=== PATIENT | female | born 1995 | race Two or more races ===

== ENCOUNTER 2016-08-03 13:29 | Outpatient (CLI) | payer OTHER | END 2016-08-03 13:30 | disposition home or self-care (01) | DX: G47.00 Insomnia, unspecified (principal) ==

== ENCOUNTER 2016-09-19 12:31 | Outpatient (CLI) | payer OTHER | END 2016-09-19 12:32 | disposition home or self-care (01) | DX: R00.0 Tachycardia, unspecified (principal); I51.7 Cardiomegaly ==

== ENCOUNTER 2016-09-21 15:18 | Outpatient (CLI) | payer OTHER | END 2016-09-21 23:59 | disposition home or self-care (01) | DX: R07.89 Other chest pain (principal) ==

== ENCOUNTER 2016-09-23 11:22 | Outpatient (CLI) | payer OTHER | END 2016-09-23 11:23 | disposition home or self-care (01) | DX: M06.09 Rheumatoid arthritis without rheumatoid factor, multiple sites (principal) ==

== ENCOUNTER 2016-09-29 14:33 | Outpatient (CLI) | payer OTHER | END 2016-09-29 23:59 | disposition home or self-care (01) | DX: T14.90 Injury, unspecified (principal) ==

== ENCOUNTER 2016-10-06 19:29 | Outpatient (CLI) | payer OTHER | END 2016-10-06 19:30 | disposition home or self-care (01) | LOC: SC 19:29 | PROVIDERS: ATTEND Internal Medicine Pulmonary Disease | DX: G47.61 Periodic limb movement disorder (principal); R00.0 Tachycardia, unspecified | CPT/HCPCS: 95810 ==

== ENCOUNTER 2016-11-26 10:56 | Outpatient (CLI) | payer OTHER | END 2016-11-26 10:57 | disposition home or self-care (01) | LOC: LAB 10:56 | PROVIDERS: ATTEND Internal Medicine Cardiovascular Disease | DX: R00.0 Tachycardia, unspecified (principal); I10 Essential (primary) hypertension | CPT/HCPCS: 36415; 82384 ==

== ENCOUNTER 2016-11-27 10:56 | Outpatient (CLI) | payer OTHER ==
[2016-12-01 15:31] LABS: TEST RESULT REPORT (())
== END 2016-11-27 10:57 | disposition home or self-care (01) ==
LOC: LAB.WCP 10:56
PROVIDERS: ATTEND Internal Medicine Cardiovascular Disease
DX: R00.0 Tachycardia, unspecified (principal)
CPT/HCPCS: 81599; 82384

== ENCOUNTER 2016-12-07 08:00 | Outpatient (CLI) | payer OTHER | END 2016-12-07 08:01 | disposition home or self-care (01) | LOC: LAB.R 08:00 | PROVIDERS: ATTEND Family Medicine | DX: J02.9 Acute pharyngitis, unspecified (principal) | CPT/HCPCS: 87070 ==

== ENCOUNTER 2017-01-14 09:15 | Outpatient (CLI) | payer OTHER | END 2017-01-14 09:16 | disposition home or self-care (01) | LOC: LAB.WCP 09:15 | PROVIDERS: ATTEND Family Medicine | DX: L03.039 Cellulitis of unspecified toe (principal) | CPT/HCPCS: 87070; 87077; 87086; 87205 ==

== ENCOUNTER 2017-06-11 08:00 | Outpatient (CLI) | payer OTHER | END 2017-06-11 08:01 | disposition home or self-care (01) | LOC: LAB.R 08:00 | PROVIDERS: ATTEND Family Medicine | DX: B97.89 Other viral agents as the cause of diseases classified elsewhere (principal) | CPT/HCPCS: 87275; 87276 ==

== ENCOUNTER 2017-09-22 17:00 | Outpatient (CLI) | payer OTHER | END 2017-09-22 17:01 | disposition home or self-care (01) | LOC: LAB.R 17:00 | PROVIDERS: ATTEND Podiatrist | DX: L03.032 Cellulitis of left toe (principal) | CPT/HCPCS: 87070; 87077; 87205 ==

== ENCOUNTER → 2018-03-18 | Outpatient (CLI) | payer OTHER ==
[2018-03-18 18:55] LABS: BASOPHILS % (AUTO) 0.8 %; EOSINOPHILS # (AUTO) 0.1 10^3/uL (0.0-0.7); EOSINOPHILS % (AUTO) 4.1 %; LYMPHOCYTES % (AUTO) 28.2 %; MEAN CORPUSCULAR HEMOGLOBIN 32.2 pg (27.0-31.0); MEAN CORPUSCULAR VOLUME 94.6 fL (81.0-99.0); MEAN PLATELET VOLUME 7.7 fL (7.9-10.8); MONOCYTES # (AUTO) 0.5 10^3/uL (0.0-1.0); MONOCYTES % (AUTO) 14.6 %; NEUTROPHILS # (AUTO) 1.9 10^3/uL (1.5-6.6); NEUTROPHILS % (AUTO) 52.3 %; PLT - PLATELET COUNT 255 10^3/uL (130-450); RED BLOOD COUNT 4.36 10^6/uL (4.20-5.40); RED CELL DISTRIBUTION WIDTH 13.3 % (12.0-15.0); WHITE BLOOD COUNT 3.5 x10^3/uL (4.8-10.8)
== END ==
LOC: LAB.WCP 11:13
PROVIDERS: ATTEND Nurse Practitioner
DX: R05 Cough (principal)
CPT/HCPCS: 36415; 85025

== ENCOUNTER 2018-03-30 14:59 | Outpatient (CLI) | payer OTHER ==
--- NOTE | 2018-03-31 10:05 | Ultrasound Report ---
Reason: PELVIC AND PERINEAL PAIN Procedure Date: 03/30/2018 Accession Number: [id number] / [id number] Procedure: US - Pelvic w/Transvaginal CPT Code: FULL RESULT: EXAM: PELVIC ULTRASOUND EXAM DATE: 03/30/2018 03:24 PM. CLINICAL HISTORY: Pelvic and perineal pain. COMPARISON: None. TECHNIQUE: Realtime transabdominal pelvic scan performed to identify the uterus and adnexa and as an overview of other pelvic structures, followed by transvaginal scan to provide greater detail of the uterus and adnexa, with static image documentation. FINDINGS: Uterus: 8.0 x 3.5 x 4.5 cm, volume 66 cc. Anteverted position. Normal overall size and echotexture. Masses: None. Endometrium: 7 mm. A small amount of fluid is seen within the endometrial canal. Cervix: Unremarkable. Right Ovary: 2.7 x 2.2 x 2.9 cm, volume 9.0 cc. Normal echotexture and blood flow. Left Ovary: 2.9 x 1.7 x 1.1 cm, volume 2.8 cc. Normal echotexture and blood flow. Free Fluid: None. Other: None. IMPRESSION: A small amount of fluid is seen within the endometrial canal, correlate to menses. No other abnormality is detected. RADIA
== END 2018-03-30 15:00 | disposition home or self-care (01) ==
LOC: DI 14:59
PROVIDERS: ATTEND Obstetrics & Gynecology
DX: R10.2 Pelvic and perineal pain (principal)
CPT/HCPCS: 76830; 76856

== ENCOUNTER 2018-07-11 16:25 | Outpatient (CLI) | payer OTHER ==
[2018-07-11 16:45] LABS: BASOPHILS % (AUTO) 0.8 %; EOSINOPHILS # (AUTO) 0.1 10^3/uL (0.0-0.7); EOSINOPHILS % (AUTO) 2.3 %; MEAN CORPUSCULAR HEMOGLOBIN 30.9 pg (27.0-31.0); MEAN CORPUSCULAR HGB CONC 33.6 g/dL (32.0-36.0); MEAN CORPUSCULAR VOLUME 92.1 fL (81.0-99.0); MEAN PLATELET VOLUME 7.2 fL (7.9-10.8); MONOCYTES # (AUTO) 0.5 10^3/uL (0.0-1.0); MONOCYTES % (AUTO) 13.3 %; NEUTROPHILS # (AUTO) 2.2 10^3/uL (1.5-6.6); NEUTROPHILS % (AUTO) 57.6 %; PLT - PLATELET COUNT 244 10^3/uL (130-450); RED BLOOD COUNT 4.54 10^6/uL (4.20-5.40); RED CELL DISTRIBUTION WIDTH 13.3 % (12.0-15.0); WHITE BLOOD COUNT 3.9 x10^3/uL (4.8-10.8)
[2018-07-11 16:58] LABS: ALBUMIN 3.7 g/dL (3.2-5.5); ALBUMIN/GLOBULIN RATIO 1.1 (1.0-2.2); ALKALINE PHOSPHATASE 40 IU/L (42-121); ALT ALANINE AMINOTRANSFERASE 42 IU/L (10-60); AST ASPARTATE AMINOTRANSFERASE 33 IU/L (10-42); BILIRUBIN,TOTAL < 0.2 mg/dL (0.2-1.0); BUN - BLOOD UREA NITROGEN 13 mg/dL (6-20); CALCIUM 8.8 mg/dL (8.5-10.3); CARBON DIOXIDE - CO2 25 mmol/L (21-32); CHLORIDE 105 mmol/L (101-111); CREATININE 0.7 mg/dL (0.4-1.0); GFR - MDRD 105 (>89); GLUCOSE 117 mg/dL (70-100); SODIUM 138 mmol/L (135-145); TOTAL PROTEIN 7.1 g/dL (6.7-8.2)
[2018-07-11 17:13] LABS: HCG UR QUAL NEGATIVE
== END 2018-07-11 16:26 | disposition home or self-care (01) ==
LOC: LAB 16:25
PROVIDERS: ATTEND Obstetrics & Gynecology
DX: Z01.818 Encounter for other preprocedural examination (principal); R10.2 Pelvic and perineal pain
CPT/HCPCS: 36415; 80053; 81025; 85025; 86850; 86900; 86901

== ENCOUNTER 2018-08-03 06:04 | Day surgery (SDC) | payer OTHER ==
[2018-08-03] MEDS ORDERED: GABAPENTIN 400 MG CAPSULE ONE (06:21)
[2018-08-03 06:45] LABS: HCG UR QUAL NEGATIVE
--- NOTE | 2018-08-03 06:50 | ANESTHESIA ---
Pre-Anesthesia VS, & Labs - Diagnosis chronic pelvic pain - Procedure diagnostic laparoscopy Vital Signs: Temp Pulse Resp BP Pulse Ox 36.5 C 87 18 135/95 H 98 08/03/18 06:25 08/03/18 06:25 08/03/18 06:25 08/03/18 06:25 08/03/18 06:25 Height 5 ft 8 in Weight (kg) 113.8 kg Body Mass Index 22.1 - NPO >8 hours - Is Patient ?: No - Lab Results Lab results reviewed: Yes Home Medications and Allergies Zolpidem Tartrate [Ambien] 10 mg PO QPM PRN 05/21/14 Albuterol Sulfate [Proair Hfa Inhaler] 2 puffs INH Q4H PRN 07/12/18 Cholecalciferol (Vitamin D3) [Vitamin D] 2,000 unit PO DAILY 07/12/18 Escitalopram Oxalate [Lexapro] 20 mg PO DAILY 07/12/18 Folic Acid 3 - 5 tab PO DAILY 07/12/18 Levocetirizine Dihydrochloride [Xyzal] 5 mg PO QPM 07/12/18 Methotrexate Sodium/Pf [Methotrexate 25 mg/ml Vial] 25 mg IJ OAW 07/12/18 Metoprolol Succinate [Toprol Xl] 50 mg PO DAILY 07/12/18 Norethindrone-Ethinyl Estrad [Nortrel 1-35 28 Tablet] 1 each PO DAILY 07/12/18 ONDANSETRON ODT Prepack 2 [ZOFRAN ODT] 4 mg PO TID PRN 07/12/18 Oxycodone HCl/Acetaminophen [Percocet 10-325 mg Tablet] 1 each PO Q6HR PRN 07/12/18 Piroxicam 20 mg PO DAILY 07/12/18 Sumatriptan Succinate [Imitrex] 100 mg PO BID PRN 07/12/18 Tofacitinib Citrate [Xeljanz Xr] 11 mg PO DAILY 07/12/18 Triamcinolone 0.1% Cream [Kenalog 0.1% Cream] 0 gm TOP BID PRN 07/12/18 hydrOXYzine HCl [Hydroxyzine HCl] 50 mg PO DAILY PRN 07/12/18 Allergies/Adverse Reactions: Allergies Allergy/AdvReac Type Severity Reaction Status Date / Time tioconazole AdvReac burning Verified 07/12/18 09:36 [From Monistat 1 sensation (tioconazole)] Anes History & Medical History - Anesthetic History Anesthesia Complications: reports: No previous complications Family history of Anesthesia Complications: Denies Family history of Malignant Hyperthermia: Denies - Medical History Cardiovascular: reports: Arrhythmia Pulmonary: reports: Asthma Gastrointestinal: reports: None Urinary: reports: None Musculoskeletal: reports: Fibromyalgia, Rheumatoid arthritis, Chronic back pain Endocrine/Autoimmune: reports: None Skin: reports: Eczema Smoking Status: Never smoker - Surgical History Eyes Ears Nose Throat (EENT): Myringotomy (tubes) Gynecologic: Other Orthopedic: Other Exam General: Alert Dental: WNL Mouth Openin Fingerbreadth Neck Mobility: Normal Mallampati classification: II Thyromental Distance: greater than 6 cm Respiratory: Lungs clear, Normal breath sounds, No respiratory distress, No accessory muscle use Cardiovascular: Regular rate, Normal S1, Normal S2, No murmurs Mental/Cognitive Status: Alert/Oriented X3, Normal for patient Cognitive Status: Within normal limits Plan Anesthesia Type: General Consent for Procedure(s) Verified and Reviewed: Yes Code Status: Attempt Resuscitation ASA classification: 2-Mild systemic disease Is this case an emergency?: No
[2018-08-03] MEDS ORDERED: LACTATED RINGERS 1,000 ML IV ONE ×2 (06:53→09:16)
[2018-08-03 07:10] LABS: ALBUMIN 3.6 g/dL (3.2-5.5); BILIRUBIN,TOTAL 0.5 mg/dL (0.2-1.0); CALCIUM 8.7 mg/dL (8.5-10.3); CREATININE 0.8 mg/dL (0.4-1.0); TOTAL PROTEIN 7.1 g/dL (6.7-8.2)
[2018-08-03] MEDS ORDERED: BUPIVACAINE 0.5%-EPI 1:200000 PF 30 ML VIAL ONE (07:31)
[2018-08-03] MEDS ORDERED: METHYLENE BLUE 0.5% 50 MG/10 ML AMPULE ONE (07:31)
[2018-08-03] MEDS ORDERED: BUPIVACAINE 0.5%-EPI 1:200000 PF 30 ML VIAL SUBQ ONE ×2 (08:20→08:42)
[2018-08-03] MEDS ORDERED: SUGAMMADEX 200 MG/2 ML VIAL IVP ONE (08:54)
[2018-08-03] MEDS ORDERED: ONDANSETRON 4 MG/2 ML VIAL IVP ONE (09:00)
[2018-08-03] MEDS ORDERED: NEOSTIGMINE 1 MG/1 ML 10 ML MDV IVP ONE (09:00)
[2018-08-03] MEDS ORDERED: PROPOFOL 200 MG/20 ML VIAL IVP ONE (09:00)
[2018-08-03] MEDS ORDERED: LIDOCAINE-MPF 2% 5 ML VIAL IM ONE (09:00)
[2018-08-03] MEDS ORDERED: ROCURONIUM 50 MG/5 ML VIAL IVP ONE (09:00)
[2018-08-03] MEDS ORDERED: fentaNYL 100 MCG/2 ML VIAL IVP ONE (09:00)
[2018-08-03] MEDS ORDERED: GLYCOPYRROLATE 1 MG/5 ML VIAL IVP ONE (09:00)
[2018-08-03] MEDS: fentaNYL 100 MCG/2 ML VIAL ONE ×3 (09:05→09:19)
[2018-08-03] MEDS ORDERED: KETOROLAC 15 MG/ML VIAL ONE (09:39)
[2018-08-03] MEDS ORDERED: oxyCODONE 5 MG TABLET PO PRN (09:42)
[2018-08-03] MEDS ORDERED: ONDANSETRON 4 MG/2 ML VIAL IVP PRN (09:42)
--- NOTE | 2018-08-03 09:50 | OPERATIVE REPORT ---
Operative Report - General Procedure Date: 08/03/18 Planned Procedure: Diagnostic laparoscopy with chromopertubation Pre-Op Diagnosis: Chronic pelvic pain, endometriosis, pelvic adhesions Procedure Performed: same Post Op Diagnosis: Chronic pelvic pain - Procedure Note Primary Surgeon: Madeline Secondary Surgeon: Jose Miguel = Terence Anesthesia Technique: General ET tube Pathology: none IV Fluids (mL): 300 Estimated Blood Loss (mL): 1 Urine Output (mL): 75 Findings: Normal uterus, ovaries, tubes, gallbladder. No adhesive disease. No endo implants seen. Tubes open bilaterally with spill seen. Complications: none
--- NOTE | 2018-08-03 09:58 | Discharge Plan ---
Discharge Plan Disposition: 01 Home, Self Care Condition: Good Diet: Regular Activity Restrictions: Activity as Tolerated Shower Restrictions: Yes (wait 24 hours) Driving Restrictions: Yes (none on oxycodone) No Smoking: If you smoke, Please STOP! Call for help. Follow-up with: Maggie Correa MD [Provider Admit Priv/Credential] -
[2018-08-03] MEDS ORDERED: LACTATED RINGERS 1,000 ML IV SCH (10:00)
[2018-08-03] MEDS ORDERED: KETOROLAC 30 MG/ML VIAL IVP SCH (10:00)
[2018-08-03] MEDS ORDERED: MORPHINE 2 MG/ML CARPUJECT ONE (11:14)
[2018-08-03 12:10] VITALS: BP 148/70
--- NOTE | 2018-08-03 16:02 | OPERATIVE REPORT ---
DATE OF SERVICE: 08/03/2018 Physician: Maggie Correa MD PREOPERATIVE DIAGNOSES 1. Chronic pelvic pain. 2. Endometriosis. 3. History of pelvic adhesive disease. POSTOPERATIVE DIAGNOSIS: Chronic pelvic pain. PROCEDURE: Diagnostic laparoscopy with chromopertubation. SURGEON: Maggie Correa MD QUILL SKINNER: Tommy Pratt MD ANESTHESIA: General. ESTIMATED BLOOD LOSS: 1 mL INTRAVENOUS FLUIDS: 300 mL of crystalloid. URINE OUTPUT: 75 mL, clear. COUNTS: Correct x2. COMPLICATIONS: None apparent. DISPOSITION: Stable to the PACU. PROPHYLAXIS: SCDs to bilateral lower extremities, no antibiotics indicated. SPECIMENS: None. FINDINGS: No adhesive disease or endometriosis implants seen. Normal uterus, ovaries, fallopian tubes, gallbladder, pelvic peritoneum, cul-de-sac, bladder peritoneum, round ligament insertions. The fallopian tubes were opened bilaterally with bilateral spill seen. DESCRIPTION OF PROCEDURE: Patient was brought to the operating room, where she was induced with general anesthesia. Her arms were tucked at her sides, and she was placed in low lithotomy and Yellofins stirrups. She was prepped and draped in the usual sterile fashion. A speculum was placed and a single-tooth tenaculum was applied to the anterior lip of the cervix. The cervix was dilated with sequential dilators to 6 mm. A HUMI uterine manipulator was then inserted into the uterine cavity and inflated. The speculum and tenaculum were removed. A Lopez catheter was then placed. The surgeon's over gloves were changed. All incisions were made with an 11 blade and numbed first with Marcaine with epinephrine. All trocars used were 5 mm. The first incision was vertical in the inferior portion of the umbilicus. The second 2 were about 3 cm inferior and 11 cm lateral to the umbilicus on each side. The umbilical trocar was introduced into the peritoneal cavity under direct visualization. The abdomen was insufflated to 15 mmHg. The pelvic and upper abdominal contents were inspected and appeared to be normal. The 2 lateral trocars were then placed under direct visualization. A very careful inspection of the entire pelvis was performed, including the bladder peritoneum, round ligament insertions, broad ligament, cul-de-sac, and the posterior broad ligament behind the ovaries on each side. Both ovaries were normal throughout their entirety. Both fallopian tubes appeared normal, and the fimbriated ends appeared normal as well. Chromopertubation was then performed with good spill seen bilaterally. The lateral trocars were removed under direct visualization. The camera was removed and the patient was given deep breaths to expel as much gas as possible from her peritoneal cavity. The skin was closed with interrupted sutures of 4-0 Monocryl, subcuticularly. Dermabond was then applied. All instruments were removed from the vagina. The Lopez catheter was also removed. She was washed and returned to the supine position prior to waking. She was transferred to the PACU in good condition. I cannot elucidate the patient's source of pelvic pain from this laparoscopy. Patient notes a history of adhesive disease and endometriosis implants seen on a prior laparoscopy years ago. None of this was seen today. TD: 08/03/2018 14:15 MTDD
--- NOTE | 2018-08-04 14:13 | PROVIDER PROGRESS NOTE ---
Subjective - Subjective Subjective: MD did not write order for discharge in error. Verbal order done. Pt met PACU discharge requirements before being discharged. Objective - Vital Signs/Intake & Output Intake & Output: Intake & Output 08/01/18 08/02/18 08/03/18 08/04/18 23:59 23:59 23:59 23:59 Intake Total 1250 Output Total 76 Balance 1174 - Lab Results Fish Bones: 08/03/18 06:50
== END 2018-08-03 06:05 | disposition home or self-care (01) ==
LOC: SDS 06:04
PROVIDERS: ATTEND Obstetrics & Gynecology
PROC: 3E1P78Z Irrigation of Female Reproductive using Irrigating Substance, Via Natural or Artificial Opening (ICD-10-PCS; principal; 2018-08-03 07:30)
DX: R10.2 Pelvic and perineal pain (principal); N92.5 Other specified irregular menstruation; M06.9 Rheumatoid arthritis, unspecified; M45.9 Ankylosing spondylitis of unspecified sites in spine; J45.909 Unspecified asthma, uncomplicated; M79.7 Fibromyalgia; E24.9 Cushing's syndrome, unspecified; E31.21 Multiple endocrine neoplasia [MEN] type I; I49.9 Cardiac arrhythmia, unspecified
CPT/HCPCS: 49320; 58350; 80053; 81025; A9270; J7120

== ENCOUNTER 2018-08-16 08:00 | Outpatient (CLI) | payer OTHER | END 2018-08-16 23:59 | disposition home or self-care (01) | LOC: LAB.R 08:00 | PROVIDERS: ATTEND Family Medicine | DX: T14.90XA Injury, unspecified, initial encounter (principal); T81.9XXA Unspecified complication of procedure, initial encounter | CPT/HCPCS: 87070; 87205 ==